=== PATIENT | female | born 1980 | race Two or more races ===

== ENCOUNTER 2021-12-22 08:30 | Inpatient (IN) | payer OTHER ==
[~2021-12-22] VITALS: Ht 160 cm; Wt 88.0 kg
[2021-12-22] MEDS ORDERED: VERAPAM PO (12:31)
[2021-12-22] MEDS ORDERED: IRON PO (12:31)
[2021-12-24] MEDS ORDERED: FAMOTIDINE40 MG (13:06)
[2021-12-24] MEDS ORDERED: IRON18 MG (13:06)
[2021-12-24] MEDS ORDERED: VERAPAMIL HCL40 MG (13:07)
== END 2021-12-27 12:23 | disposition home or self-care (01) | DRG 743 ==
LOC: OB/GYN 12-24 08:30 → O/R 12-24 11:30 → OB/GYN 12-24 11:30
PROVIDERS: ADMIT Obstetrics & Gynecology; ATTEND Obstetrics & Gynecology
PROC: 0UT70ZZ Resection of Bilateral Fallopian Tubes, Open Approach (ICD-10-PCS; 2021-12-24)
PROC: 0UT90ZZ Resection of Uterus, Open Approach (ICD-10-PCS; principal; 2021-12-24 09:30)
DX: D25.1 Intramural leiomyoma of uterus (principal); D25.2 Subserosal leiomyoma of uterus; N72 Inflammatory disease of cervix uteri; Z20.822 Contact with and (suspected) exposure to COVID-19

== ENCOUNTER 2023-10-01 12:58 | Emergency (ER) | payer OTHER ==
[~2023-10-01] VITALS: Ht 160 cm; Wt 88.0 kg
[~2023-10-01 12:58] MED LIST: FAMOTIDINE40 MG; IRON PO; IRON18 MG; VERAPAM PO; VERAPAMIL HCL40 MG
[2023-10-01 16:16] LABS: HEMATOCRIT 43.6 % (36.0-45.00); HEMOGLOBIN 14.5 g/dL (12.0-15.00); MEAN CELL VOLUME 90.9 fL (80.00-100.00); MEAN CORPUSCULAR HEMOGLOBIN 30.3 pg (27.00-32.0); MEAN CORPUSCULAR HGB CONC 33.4 g/dl (32.0-36.0); PLATELET COUNT 294 K/uL (150-450); RED BLOOD COUNT 4.79 M/uL (4.00-6.00)
[2023-10-01 16:34] LABS: CALCIUM 9.3 mg/dL (8.5-10.1); CREATININE SERUM 0.8 mg/dL (0.55-1.02); GFR 77.92; POTASSIUM 4.13 mEq/L (3.5-5.1)
== END 2023-10-01 21:01 | disposition home or self-care (01) ==
LOC: ER 12:59
PROVIDERS: General Practice
DX: J45.901 Unspecified asthma with (acute) exacerbation (principal); Z88.0 Allergy status to penicillin; Z91.018 Allergy to other foods; Z20.822 Contact with and (suspected) exposure to COVID-19

== ENCOUNTER 2023-10-07 16:47 | Emergency (ER) | payer OTHER ==
[~2023-10-07] VITALS: Ht 160 cm; Wt 93.9 kg
[2023-10-07] MEDS ORDERED: PROAIR RESPICL90 MCG (17:38)
[2023-10-07] MEDS ORDERED: MEDROL4 MG (17:38)
[2023-10-07 19:05] LABS: HEMATOCRIT 44.6 % (36.0-45.00); MEAN CELL VOLUME 90.7 fL (80.00-100.00); MEAN CORPUSCULAR HEMOGLOBIN 30.5 pg (27.00-32.0); MEAN CORPUSCULAR HGB CONC 33.7 g/dl (32.0-36.0); PLATELET COUNT 367 K/uL (150-450); RED BLOOD COUNT 4.92 M/uL (4.00-6.00); RED CELL DISTRIBUTION WIDTH 13.9 % (11.5-14.5)
[2023-10-07 19:49] LABS: ABG PH 7.433 (7.35-7.45); ABG pCO2 34.3 mmHg (35-45); BASE EXCESS -1.1 mmol/l; BICARBONATE 22.4 mmol/l (23-25)
[2023-10-07 19:50] LABS: Tco2 23.5 mmol/l; allen test SATISFACTORY; o2 21 %; puncture site RADIAL LEFT
[2023-10-07 19:53] LABS: SaO2 98.3 %
[2023-10-07] MEDS ORDERED: SINGULAIR10 MG PO (20:10)
[2023-10-07] MEDS ORDERED: LEVOFLOXACIN500 MG PO (20:10)
[2023-10-07] MEDS ORDERED: XOPENEX CO1.25 MG/0. IH (20:10)
[2023-10-07] MEDS ORDERED: TUSNEL LIQUID178 ML PO (20:10)
== END 2023-10-07 20:23 | disposition home or self-care (01) ==
LOC: ER 16:48
PROVIDERS: General Practice
DX: J06.9 Acute upper respiratory infection, unspecified (principal); Z88.0 Allergy status to penicillin; Z91.018 Allergy to other foods; I11.9 Hypertensive heart disease without heart failure; Z20.822 Contact with and (suspected) exposure to COVID-19

== ENCOUNTER 2024-06-01 12:16 | Inpatient (IN) | payer OTHER ==
[~2024-06-01] VITALS: Ht 160 cm; Wt 91.6 kg
[~2024-06-01 12:16] MED LIST changes: +LEVOFLOXACIN500 MG PO; +MEDROL4 MG; +PEPCID AC20 MG PO; +PROAIR RESPICL90 MCG; +SINGULAIR10 MG PO; +TUSNEL LIQUID178 ML PO; +VERAPAMIL ER120 MG PO; +XOPENEX CO1.25 MG/0. IH; +ZOFRAN8 MG PO
[2024-06-01] MEDS ORDERED: 0.9 % SODIUM CHLORIDE 1,000 ML IV SCH ×2 (13:15→20:00)
[2024-06-01 13:43] LABS: HEMATOCRIT 41.3 % (36.0-45.00); HEMOGLOBIN 14.6 g/dL (12.0-15.00); MEAN CELL VOLUME 88.6 fL (80.00-100.00); MEAN CORPUSCULAR HEMOGLOBIN 31.3 pg (27.00-32.0); MEAN CORPUSCULAR HGB CONC 35.3 g/dl (32.0-36.0); PLATELET COUNT 282 K/uL (150-450); RED BLOOD COUNT 4.66 M/uL (4.00-6.00); RED CELL DISTRIBUTION WIDTH 13.7 % (11.5-14.5)
[2024-06-01] MEDS ORDERED: ATROPINE SULFATE 0.4 MG/ML VIAL IV ONE (14:00)
[2024-06-01] MEDS ORDERED: ATROPINE SULFATE 0.4 MG/ML VIAL ONE (14:05)
[2024-06-01 14:13] LABS: CALCIUM 9.5 mg/dL (8.5-10.1); CREATININE SERUM 0.82 mg/dL (0.55-1.02); GFR 75.73; POTASSIUM 4.13 mEq/L (3.5-5.1)
[2024-06-01 14:28] LABS: PH,URINE 7.5 (5.0-8.0); URINE APPEARANCE Clear; URINE BILIRRUBIN Negative (NEGATIVE); URINE BLOOD Negative; URINE COLOR Yellow; URINE GLUCOSE Negative (NEGATIVE); URINE KETONE Negative (NEGATIVE); URINE LEUKOCYTE Negative; URINE NITRATE Negative; URINE PROTEIN Negative (NEGATIVE); URINE UROBILINOGEN 0.2 E.U./dl
[2024-06-01 14:32] LABS: URINE BACTERIA 1069.6 uL (0.0-1933); URINE EPITHELIAL CELLS 54.8 uL (0.0-38.8); URINE RBC 13.5 uL (0.0-20.8); URINE WBC 15.6 uL (0.0-23.2)
[2024-06-01 14:33] LABS: URINE CAST 0.15 uL (0.0-1.40)
[2024-06-01] MEDS ORDERED: ONDANSETRON HCL 4 MG in 0.9 % SODIUM CHLORIDE 50 ML IV PRN (20:15)
[2024-06-01] MEDS ORDERED: ACETAMINOPHEN 500 MG GEL..CAP PO PRN (20:15)
[2024-06-01 21:10] LABS: INR 1.01
[2024-06-01 21:15] LABS: MAGNESIUM 2.5 mg/dL (1.8-2.4); PHOSPHOROUS 3.2 mg/dL (2.5-4.9)
[2024-06-01 21:22] LABS: D DIMER < 0.19 MG/L
[2024-06-01 21:32] VITALS: BP 120/80; O2SAT 100
[2024-06-01 22:24] VITALS: O2SAT 99
[2024-06-01 23:39] VITALS: O2SAT 100
[2024-06-02 02:24] VITALS: BP 111/68
[2024-06-02 05:04] VITALS: O2SAT 100
[2024-06-02 07:13] VITALS: BP 99/61; O2SAT 99
[2024-06-02] MEDS ORDERED: FAMOTIDINE/PF 20 MG in 0.9 % SODIUM CHLORIDE 8 ML IV PUSH SCH (09:00)
[2024-06-02 13:12] VITALS: O2SAT 98
[2024-06-02] MEDS ORDERED: MONTELUKAST SODIUM 10 MG TABLET PO SCH (17:00)
[2024-06-02 17:14] VITALS: BP 143/77; O2SAT 100
[2024-06-03 00:40] VITALS: O2SAT 97
[2024-06-03 03:02] VITALS: BP 108/70; O2SAT 99
[2024-06-03 05:10] VITALS: O2SAT 100
[2024-06-03 07:47] VITALS: O2SAT 100
[2024-06-03 09:49] VITALS: BP 112/62
== END 2024-06-03 12:51 | disposition home or self-care (01) | DRG 310 ==
LOC: ER 12:18 → MEDJ 20:08
PROVIDERS: Emergency Medicine; General Practice; ADMIT Internal Medicine; ATTEND Internal Medicine
PROC: BW28ZZZ Computerized Tomography (CT Scan) of Head (ICD-10-PCS; principal; 2024-06-01)
PROC: B345ZZZ Ultrasonography of Bilateral Common Carotid Arteries (ICD-10-PCS; 2024-06-01)
PROC: B24BZZZ Ultrasonography of Heart with Aorta (ICD-10-PCS; 2024-06-01)
PROC: 4A12X4Z Monitoring of Cardiac Electrical Activity, External Approach (ICD-10-PCS; 2024-06-01)
DX: R00.1 Bradycardia, unspecified (principal); R55 Syncope and collapse; I48.0 Paroxysmal atrial fibrillation; I34.0 Nonrheumatic mitral (valve) insufficiency; I11.9 Hypertensive heart disease without heart failure; D64.9 Anemia, unspecified

== ENCOUNTER 2024-12-19 16:23 | Inpatient (IN) | payer OTHER ==
[~2024-12-19] VITALS: Ht 162.6 cm; Wt 86.2 kg
[2024-12-19] MEDS ORDERED: TRAMADOL HCL 50 MG TABLET PO ONE (17:30)
[2024-12-19] MEDS ORDERED: FAMOtidine 10 MG/ML (4ML VIAL) IV ONE (17:30)
[2024-12-19] MEDS ORDERED: FAMOTIDINE/PF 20 MG/2 ML VIAL ONE (17:55)
[2024-12-19 18:17] LABS: URINE APPEARANCE Clear; URINE BILIRRUBIN Negative (NEGATIVE); URINE BLOOD Negative; URINE COLOR Yellow; URINE GLUCOSE Negative (NEGATIVE); URINE KETONE Negative (NEGATIVE); URINE LEUKOCYTE Negative; URINE NITRATE Negative; URINE PROTEIN Negative (NEGATIVE); URINE UROBILINOGEN 0.2 E.U./dl
[2024-12-19 18:20] LABS: HEMATOCRIT 43.1 % (36.0-45.00); HEMOGLOBIN 14.7 g/dL (12.0-15.00); MEAN CELL VOLUME 90.1 fL (80.00-100.00); MEAN CORPUSCULAR HEMOGLOBIN 30.8 pg (27.00-32.0); MEAN CORPUSCULAR HGB CONC 34.2 g/dl (32.0-36.0); PLATELET COUNT 306 K/uL (150-450); RED BLOOD COUNT 4.78 M/uL (4.00-6.00); RED CELL DISTRIBUTION WIDTH 13.4 % (11.5-14.5)
[2024-12-19 18:22] LABS: URINE EPITHELIAL CELLS 9.3 uL (0.0-38.8); URINE RBC 6.1 uL (0.0-20.8)
[2024-12-19 18:28] LABS: URINE CAST 0.14 uL (0.0-1.40); URINE WBC 1.5 uL (0.0-23.2)
[2024-12-19 18:42] LABS: INR 0.98; PARTIAL THROMBOPLASTIN TIME 27.7 SECONDS (22.0-34.0); PROTHROMBIN TIME 10.7 SECONDS (9.0-11.5)
[2024-12-19 18:47] LABS: ALBUMIN 4.1 gm/dL (3.4-5.0); BILIRUBIN TOTAL 0.31 mg/dL (0.3-1.2); CALCIUM 9.6 mg/dL (8.5-10.1); CREATININE SERUM 0.88 mg/dL (0.55-1.02); GFR 69.49; GLOBULINA 3.8 G/DL (2.4-3.5); POTASSIUM 3.87 mEq/L (3.5-5.1); TOTAL PROTEIN 7.9 gm/dL (6.4-8.2)
[2024-12-19] MEDS ORDERED: ASPIRIN 325 MG TABLET PO ONE (19:30)
[2024-12-19] MEDS ORDERED: ATORVASTATIN CALCIUM 40 MG TABLET PO SCH (20:44)
[2024-12-19] MEDS ORDERED: ACETAMINOPHEN 500 MG GEL..CAP PO PRN (20:45)
[2024-12-19] MEDS ORDERED: NITROGLYCERIN IN 5 % DEXTROSE 250 ML IV SCH (20:45)
[2024-12-19] MEDS ORDERED: TICAGRELOR 90 MG TABLET PO ONE ×2 (20:45→22:45)
[2024-12-19] MEDS ORDERED: 0.9 % SODIUM CHLORIDE 1,000 ML IV SCH (21:00)
[2024-12-19] MEDS ORDERED: ENOXAPARIN SODIUM 80 MG/0.8 ML SYRINGE SUBCUTANEO SCH (21:00)
[2024-12-19] MEDS ORDERED: MORPHINE SULFATE 2 MG/ML CARTRIDGE IV PRN (21:00)
[2024-12-19] MEDS ORDERED: NITROGLYCERIN IN 5 % DEXTROSE 50 MG/250 ML BOTTLE IV ONE (22:45)
[2024-12-19] MEDS ORDERED: ENOXAPARIN SODIUM 80 MG/0.8 ML SYRINGE SUBCUTANEO ONE (22:45)
[2024-12-19 23:00] VITALS: BP 130/73; O2SAT 98
[2024-12-20] VITALS (21 sets, daily range): BP systolic 86–138; BP diastolic 47–99; O2SAT 99–100
[2024-12-20] MEDS ORDERED: TICAGRELOR 90 MG TABLET PO SCH (05:00)
[2024-12-20] MEDS ORDERED: FAMOTIDINE/PF 20 MG in 0.9 % SODIUM CHLORIDE 8 ML IV PUSH SCH (09:00)
[2024-12-20] MEDS ORDERED: ASPIRIN 81 MG TAB.CHEW PO SCH (09:00)
[2024-12-20] MEDS ORDERED: NITROGLYCERIN IN 5 % DEXTROSE 250 ML IV SCH (09:15)
[2024-12-20 11:58] LABS: ALBUMIN 3.7 gm/dL (3.4-5.0); BILIRUBIN TOTAL 0.6 mg/dL (0.3-1.2); CALCIUM 8.8 mg/dL (8.5-10.1); CHOL HDL RATIO 4.2 (0-5.0); CREATININE SERUM 0.77 mg/dL (0.55-1.02); GFR 81.06; GLOBULINA 3.4 G/DL (2.4-3.5); POTASSIUM 3.92 mEq/L (3.5-5.1); TOTAL PROTEIN 7.1 gm/dL (6.4-8.2); TSH 1.69 uIU/mL (0.358-3.74)
[2024-12-21] VITALS (12 sets, daily range): BP systolic 101–144; BP diastolic 60–81; O2SAT 98–100
[2024-12-21] MEDS ORDERED: KETOROLAC TROMETHAMINE 30 MG VIAL IV PRN (07:15)
[2024-12-21] MEDS ORDERED: CANDESARTAN CILEXETIL 8 MG TAB PO SCH (09:00)
[2024-12-21] MEDS ORDERED: ISOSORBIDE MONONITRATE 30 MG TABLET PO SCH (09:00)
[2024-12-21] MEDS ORDERED: NIFEDIPINE 30 MG TAB.SA.OSM PO SCH (09:00)
[2024-12-21] MEDS ORDERED: FAMOtidine 40 MG TABLET PO SCH (21:00)
[2024-12-22 01:52] VITALS: BP 115/71
[2024-12-22 08:26] VITALS: BP 124/84
== END 2024-12-22 10:16 | disposition designated cancer center or children's hospital (05) | DRG 282 ==
LOC: ER 16:24 → ICU 21:48 → ICU-2 21:48 → ICU 12-20 02:35 → MEDI 12-21 19:25
PROVIDERS: General Practice; ADMIT Internal Medicine; ATTEND Internal Medicine
PROC: BW28ZZZ Computerized Tomography (CT Scan) of Head (ICD-10-PCS; principal; 2024-12-19)
PROC: B246ZZZ Ultrasonography of Right and Left Heart (ICD-10-PCS; 2024-12-19)
PROC: 4A12X4Z Monitoring of Cardiac Electrical Activity, External Approach (ICD-10-PCS; 2024-12-21)
DX: I21.4 Non-ST elevation (NSTEMI) myocardial infarction (principal); I24.9 Acute ischemic heart disease, unspecified; Z95.0 Presence of cardiac pacemaker

== ENCOUNTER 2025-01-12 09:54 | Outpatient (CLI) | payer OTHER ==
[2025-01-12 11:54] LABS: HEMATOCRIT 42.4 % (36.0-45.00); HEMOGLOBIN 14.3 g/dL (12.0-15.00); MEAN CELL VOLUME 88.9 fL (80.00-100.00); MEAN CORPUSCULAR HEMOGLOBIN 30.1 pg (27.00-32.0); MEAN CORPUSCULAR HGB CONC 33.8 g/dl (32.0-36.0); PLATELET COUNT 292 K/uL (150-450); RED BLOOD COUNT 4.77 M/uL (4.00-6.00); RED CELL DISTRIBUTION WIDTH 13.9 % (11.5-14.5)
[2025-01-12 13:19] LABS: ALBUMIN 3.8 gm/dL (3.4-5.0); BILIRUBIN TOTAL 0.53 mg/dL (0.3-1.2); CALCIUM 9.2 mg/dL (8.5-10.1); CHOL HDL RATIO 4.5 (0-5.0); CREATININE SERUM 0.68 mg/dL (0.55-1.02); GFR 93.57; GLOBULINA 3.6 G/DL (2.4-3.5); POTASSIUM 4.72 mEq/L (3.5-5.1); T4 TOTAL 7.72 UG/DL (4.8-13.9); TOTAL PROTEIN 7.4 gm/dL (6.4-8.2); TSH 1.19 uIU/mL (0.358-3.74)
[2025-01-12 13:38] LABS: T3 TOTAL 1.44 ng/ml (0.846-2.02); VITAMIN D3 25 HYDROXY 21.39 ng/ml (30-120)
[2025-01-12 14:00] LABS: URINE APPEARANCE Clear; URINE BILIRRUBIN Negative (NEGATIVE); URINE BLOOD Negative; URINE COLOR Yellow; URINE GLUCOSE Negative (NEGATIVE); URINE KETONE Negative (NEGATIVE); URINE LEUKOCYTE Negative; URINE NITRATE Negative; URINE PROTEIN Negative (NEGATIVE); URINE UROBILINOGEN 0.2 E.U./dl
[2025-01-12 14:04] LABS: URINE BACTERIA 326.7 uL (0.0-1933); URINE RBC 12.6 uL (0.0-20.8); URINE WBC 4.2 uL (0.0-23.2)
[2025-01-12 14:17] LABS: URINE CAST 0.14 uL (0.0-1.40)
[2025-01-12] MEDS ORDERED: LISINOPRIL2.5 MG PO (15:39)
[2025-01-12] MEDS ORDERED: FUROSEMIDE20 MG PO (15:39)
[2025-01-12] MEDS ORDERED: FAMOTIDINE20 MG PO (15:39)
[2025-01-12] MEDS ORDERED: ATORVASTATIN CA80 MG PO (15:39)
[2025-01-12] MEDS ORDERED: NIFEDIPINE ER30 M1 PO (15:40)
[2025-01-12] MEDS ORDERED: ISOSORBIDE MONO30 M2 PO (15:40)
== END 2025-01-12 09:59 | disposition home or self-care (01) ==
LOC: LAB 09:54
DX: E21.3 Hyperparathyroidism, unspecified (principal); I10 Essential (primary) hypertension; E78.5 Hyperlipidemia, unspecified; R80.8 Other proteinuria; N39.0 Urinary tract infection, site not specified; R19.5 Other fecal abnormalities; E03.9 Hypothyroidism, unspecified; E55.9 Vitamin D deficiency, unspecified; E11.65 Type 2 diabetes mellitus with hyperglycemia; I11.9 Hypertensive heart disease without heart failure

== ENCOUNTER 2025-01-12 10:13 | Outpatient (CLI) | payer OTHER ==
[2025-01-12] MEDS ORDERED: LISINOPRIL2.5 MG PO (15:39)
[2025-01-12] MEDS ORDERED: ATORVASTATIN CA80 MG PO (15:39)
[2025-01-12] MEDS ORDERED: FUROSEMIDE20 MG PO (15:39)
[2025-01-12] MEDS ORDERED: FAMOTIDINE20 MG PO (15:39)
[2025-01-12] MEDS ORDERED: NIFEDIPINE ER30 M1 PO (15:40)
[2025-01-12] MEDS ORDERED: ISOSORBIDE MONO30 M2 PO (15:40)
== END 2025-01-12 10:15 | disposition home or self-care (01) ==
LOC: RAD 10:13
PROVIDERS: ATTEND General Practice
DX: N39.0 Urinary tract infection, site not specified (principal); N23 Unspecified renal colic; I70.0 Atherosclerosis of aorta

== ENCOUNTER 2025-01-12 15:04 | Emergency (ER) | payer OTHER ==
[~2025-01-12] VITALS: Ht 160 cm; Wt 97.1 kg
[2025-01-12] MEDS ORDERED: FUROSEMIDE20 MG PO (15:39)
[2025-01-12] MEDS ORDERED: FAMOTIDINE20 MG PO (15:39)
[2025-01-12] MEDS ORDERED: ATORVASTATIN CA80 MG PO (15:39)
[2025-01-12] MEDS ORDERED: LISINOPRIL2.5 MG PO (15:39)
[2025-01-12] MEDS ORDERED: ISOSORBIDE MONO30 M2 PO (15:40)
[2025-01-12] MEDS ORDERED: NIFEDIPINE ER30 M1 PO (15:40)
[2025-01-12] MEDS ORDERED: KETOROLAC TROMETHAMINE 30 MG VIAL IM STA (16:33)
[2025-01-12] MEDS ORDERED: KETOROLAC TROMETHAMINE 30 MG VIAL ONE (16:36)
== END 2025-01-12 17:36 | disposition home or self-care (01) ==
LOC: ER 15:04
DX: M25.551 Pain in right hip (principal); Z88.0 Allergy status to penicillin; Z91.018 Allergy to other foods

== ENCOUNTER 2025-03-13 09:39 | Emergency (ER) | payer OTHER ==
[~2025-03-13] VITALS: Ht 162.6 cm; Wt 86.2 kg
[~2025-03-13 09:39] MED LIST changes: +ATORVASTATIN CA80 MG PO; +FAMOTIDINE20 MG PO; +FUROSEMIDE20 MG PO; +ISOSORBIDE MONO30 M2 PO; +LISINOPRIL2.5 MG PO; +NIFEDIPINE ER30 M1 PO
[2025-03-13] MEDS ORDERED: LEVALBUTEROL HCL 1.25 MG/3 ML SOLUTION IH SCH (10:30)
[2025-03-13] MEDS ORDERED: METHYLPREDNISOLONE SOD SUCC 125 MG VIAL IV ONE (10:30)
[2025-03-13] MEDS ORDERED: GUAIFENESIN/DEXTROMETHORPHAN 100MG/10ML BLIST.PACK PO ONE ×2 (10:30→10:33)
[2025-03-13] MEDS ORDERED: METHYLPREDNISOLONE SOD SUCC 125 MG VIAL ONE (10:33)
[2025-03-13] MEDS ORDERED: LASIX20 MG PO (10:35)
[2025-03-13] MEDS ORDERED: WATER FOR INJ.,BACTERIOSTATIC 30 ML VIAL IJ ONE (10:37)
[2025-03-13] MEDS ORDERED: LEVALBUTEROL HCL 1.25 MG/3 ML SOLUTION IH ONE (11:22)
[2025-03-13 11:29] LABS: BASO % 0.4 % (0.1-1.2); EOS % 4.1 % (0.7-7.0); HEMATOCRIT 39.8 % (34.1-44.9); HEMOGLOBIN 13.2 g/dL (11.2-15.7); LYMPH # 1.17 (1.18-3.74); LYMPH % 16.1 % (19.3-53.1); MEAN CORPUSCULAR HEMOGLOBIN 29.7 pg (25.6-32.2); MONO # 0.69 (0.24-0.82); MONO % 9.5 % (4.7-12.5); NEUT # 5.05 (1.56-6.13); NEUT % 69.6 % (34.0-71.1); PLATELET COUNT 302 K/uL (163-369); RED BLOOD COUNT 4.44 M/uL (3.93-5.22); RED CELL DISTRIBUTION WIDTH 13.5 % (11.6-14.4)
[2025-03-13 11:35] LABS: ABG PH 7.413 (7.35-7.45); ABG PO2 96.3 mmHg (80-100); BASE EXCESS -0.1 mmol/l; BICARBONATE 24.3 mmol/l (23-25); SaO2 97.5 %; Tco2 25.5 mmol/l
[2025-03-13 11:56] LABS: allen test SATISFACTORY; mode ROOM AIR; o2 21 %; puncture site RADIAL LEFT
[2025-03-13 11:59] LABS: ALBUMIN 3.9 gm/dL (3.4-5.0); BILIRUBIN TOTAL 0.51 mg/dL (0.3-1.2); CALCIUM 9.2 mg/dL (8.5-10.1); CREATININE SERUM 0.73 mg/dL (0.55-1.02); GFR 86.21; GLOBULINA 4.3 G/DL (2.4-3.5); POTASSIUM 3.97 mEq/L (3.5-5.1); TOTAL PROTEIN 8.2 gm/dL (6.4-8.2)
[2025-03-13 12:20] LABS: COVID-19 AG NEGATIVE (NEGATIVE)
[2025-03-13 12:34] LABS: INFLUENZA A AG NEGATIVE (NEGATIVE); INFLUENZA B AG NEGATIVE (NEGATIVE)
[2025-03-13] MEDS ORDERED: MEDROLPACK PO (12:45)
[2025-03-13] MEDS ORDERED: ZITHROMAX500 MG PO (12:45)
== END 2025-03-13 12:58 | disposition home or self-care (01) ==
LOC: ER 09:39
PROVIDERS: General Practice
DX: J45.909 Unspecified asthma, uncomplicated (principal); Z20.822 Contact with and (suspected) exposure to COVID-19; Z88.0 Allergy status to penicillin; Z91.018 Allergy to other foods